=== PATIENT | male | born 1960 | race Caucasian/White ===

== ENCOUNTER 2017-06-30 05:55 | Day surgery (SDC) | payer OTHER ==
[~2017-06-30] VITALS: Ht 175.3 cm; Wt 94.5 kg
[2017-06-30 06:42] VITALS: Ht 175.3 cm; Wt 94.5 kg
[2017-06-30] MEDS ORDERED: HIGH BP MED (06:49)
[2017-06-30] MEDS ORDERED: HIGH CHOL (06:49)
[2017-06-30] MEDS ORDERED: ASPI-535 PO (06:49)
[2017-06-30] MEDS ORDERED: METF500T4 PO (06:49)
[2017-06-30 07:12] VITALS: BP 147/77; PULSE 76; RESP 17
[2017-06-30] MEDS ORDERED: MIDAZOLAM 1 MG/ML 2 ML INJ ONE (07:29)
[2017-06-30] MEDS ORDERED: FENTAnyl 50 MCG/ML VIAL ONE (07:29)
[2017-06-30] MEDS ORDERED: PROPOFOL 20 ML ONE (07:29)
--- NOTE | 2017-06-30 08:12 | OPPN ---
Date/Time of Note Date/Time of Note DATE: 06/30/17 TIME: 08:11 Operative Report Preoperative Diagnosis Screening Postoperative Diagnosis Internal hemorrhoids No colon neoplasm is identified Operation/Procedure Performed Colonoscopy Surgeon see signature line bioinformatics assistant None Anesthesia: MAC Estimated blood loss: none Transfusion Required none Specimen None Grafts/Implants none Complications none AIXA RIOS MD Jun 30, 2017 08:12
--- NOTE | 2017-07-01 04:06 | GILP ---
DATE OF PROCEDURE: 06/30/2017 NAME OF PROCEDURE: Colonoscopy. SURGEON: Aixa Griffin MD PREOPERATIVE DIAGNOSIS: Screening colonoscopy. POSTOPERATIVE DIAGNOSES: 1. Colonoscopy all the way to the cecum. 2. Internal hemorrhoids. 3. No colon neoplasm was identified. INDICATION FOR THE PROCEDURE: Mr. Kurt Pollard is a 57-year-old male patient who was schedu led for screening colonoscopy. The procedure and possible complications were well explained to the patient, he understood and conse nted to the procedure. DESCRIPTION OF PROCEDURE: Under the influence of anesthesia, the colonoscope was carefully introduc ed in the rectum and under direct vision, it was advanced all the way to the cecum. FINDINGS: The patient had internal hemorrhoids. No colon neoplasm was identified. He tolerated the procedure very well and there was no complication from the procedure. At the end o f the procedure, he was awake with stable vital signs and he was discharged home to the care of his family. IMPRESSION: Please see postoperative diagnoses. PLAN: Next screening colonoscopy in 10 years. Dictated By: AIXA FERRARO/RADHA Conf#: [id number] DID#: [id number]
== END 2017-06-30 10:52 | disposition home or self-care (01) ==
LOC: GIL 05:55
PROVIDERS: ATTEND Internal Medicine Gastroenterology
DX: Z12.11 Encounter for screening for malignant neoplasm of colon (principal); K64.8 Other hemorrhoids; I10 Essential (primary) hypertension; E11.9 Type 2 diabetes mellitus without complications; E78.5 Hyperlipidemia, unspecified
CPT/HCPCS: 45378; 82962; J2250; J3010; Z7610